=== PATIENT | male | born 1985 | race African-American/Black ===

== ENCOUNTER 2021-01-26 08:19 | Inpatient (IN) | payer BC, OTHER ==
[~2021-01-26] VITALS: Ht 167.6 cm; Wt 132.9 kg
[2021-01-26] VITALS (13 sets, daily range): BP systolic 139–190; BP diastolic 73–124
[2021-01-26 08:52] LABS: ABSOLUTE NEUTROPHILS 3.3 thou/uL (1.4-8.2); BASOPHILS 0.7 % (0.0-2.0); EOSINOPHILS 1.4 % (0.0-3.0); HEMATOCRIT 44.6 % (42.0-52.0); HEMOGLOBIN 14.6 gm/dL (14.0-18.0); LYMPHOCYTES 22.8 % (24.0-44.0); MCHC 32.8 g/dL (28.0-37.0); MONOCYTES 13.1 % (1.0-8.0); PLATELET COUNT 201 thou/uL (150-400); RBC 6.11 mil/uL (4.50-6.00); RDW 14.4 % (10.5-14.5); WBC 5.4 thou/uL (4.0-11.0)
[2021-01-26 09:18] LABS: CALCIUM 8.9 mg/dL (8.5-10.1); CREATININE 1.3 mg/dL (0.7-1.3); POTASSIUM 4.4 mmol/L (3.5-5.1)
[2021-01-26 09:22] LABS: URINE BLOOD TRACE (Negative); URINE CLARITY CLEAR; URINE COLOR YELLOW; URINE GLUCOSE-RANDOM* 3+ (Negative); URINE KETONES 3+ (Negative); URINE LEUKOCYTES-REFLEX NEGATIVE (Negative); URINE NITRITE-REFLEX NEGATIVE (Negative); URINE PROTEIN (DIPSTICK) NEGATIVE (Negative); URINE UROBILINOGEN 0.2 E.U./dl (0.2-1.0)
[2021-01-26 09:24] LABS: ALBUMIN 3.8 g/dL (3.4-5.0); TOTAL BILIRUBIN 0.7 mg/dL (0.2-1.0); TOTAL PROTEIN 7.6 g/dL (6.4-8.2)
[2021-01-26 09:44] LABS: ICTOTEST (BILI CONFIRMATORY) Negative (Negative); URINE BILIRUBIN NEGATIVE (Negative)
[2021-01-26 09:52] LABS: BE(vivo) -8.6 mmol/L (-2 to +3); HCO3 16.2 mmol/L (22.0-26.0); PCO2 VENOUS 32.1 mmHg (41.0-51.0); PO2 VENOUS 53.3 mmHg (35.0-45.0)
[2021-01-26 12:21] LABS: MAGNESIUM 2.1 mg/dL (1.8-2.4); PHOSPHORUS 3.6 mg/dL (2.5-4.9)
--- NOTE | 2021-01-26 14:15 | NUR ---
PATIENT ADMITTED TO ICU FOR DKA, INSULIN GTT INFUSING AT 4 UNITS/HR. INITIAL BLOOD SUGAR 260. WAITING FOR REPEAT LABS. PLACED ON MONITOR. SINUS TACH. HTN, PATIENT VOICES HX OF HTN BUT DOES NOT TAKE ANY CURRENT MEDICATIONS. HAD LOOSE BM UPON ARRIVAL. ADMISSION ASSESSMENTS COMPLETE. EDUCATED ON USE OF CALL LIGHT. PROVIDED VISITOR RULES AND ORIENTED TO ROOM. PATIENT DENIES ANY PAIN OR DISCOMFORT AT THIS TIME.
[2021-01-26 15:18] LABS: CALCIUM 8.9 mg/dL (8.5-10.1); CREATININE 1.3 mg/dL (0.7-1.3); POTASSIUM 3.7 mmol/L (3.5-5.1)
[2021-01-26 15:24] LABS: ALBUMIN 3.7 g/dL (3.4-5.0); TOTAL BILIRUBIN 0.5 mg/dL (0.2-1.0); TOTAL PROTEIN 7.3 g/dL (6.4-8.2)
[2021-01-26 20:38] LABS: ALBUMIN 3.5 g/dL (3.4-5.0); CALCIUM 8.7 mg/dL (8.5-10.1); CREATININE 1.1 mg/dL (0.7-1.3); MAGNESIUM 2.1 mg/dL (1.8-2.4); POTASSIUM 3.6 mmol/L (3.5-5.1); TOTAL BILIRUBIN 0.4 mg/dL (0.2-1.0)
[2021-01-26 21:32] LABS: AMP/METHAMP Negative (Negative); BARBITURATES Negative (Negative); BENZODIAZEPINES Negative (Negative); COCAINE Negative (Negative); METHADONE Negative (Negative); OPIATES Negative (Negative); PCP Negative (Negative)
[2021-01-27] VITALS (13 sets, daily range): BP systolic 122–170; BP diastolic 68–130
[2021-01-27 05:14] LABS: ANION GAP 12 mmol/L (7-16); BUN 12 mg/dL (7-18); CALCIUM 8.3 mg/dL (8.5-10.1); CHLORIDE 105 mmol/L (98-107); CHOLESTEROL 243 mg/dL (<200); CO2 22 mmol/L (21-32); GLUCOSE 161 mg/dL (74-106); HDL CHOLESTEROL 31 mg/dL (>40); LDL CHOLESTEROL 178 mg/dL (<100); PHOSPHORUS 3.4 mg/dL (2.5-4.9); POTASSIUM 3.5 mmol/L (3.5-5.1); SODIUM 139 mmol/L (136-145); TC:HDL 7.8 Ratio (Not establshd); TRIGLYCERIDE 174 mg/dL (<150); VLDL 35 mg/dL (<40)
[2021-01-27 05:37] LABS: SERUM ASSESSMENT Clear
--- NOTE | 2021-01-27 15:07 | NUR ---
ORDERS FOR EVAL AND TREAT. SPOKE WITH Pt WHO STATES HE FEELS BACK TO NORMAL. STATES HE DID FINE WITH O.T. EVAL AND HE DIDN'T HAVE ANY ISSUES WITH BALANCE OR MOBILITY. Pt DECLINING A FORMAL P.T. EVAL BUT WAS INDEPENDENT/SBA FOR O.T. EVAL AND APPEARS SAFE FOR HOME WHEN MEDICALLY CLEAR.
--- NOTE | 2021-01-27 15:31 | NUR ---
ASSUMED CARE 0700. PT TOOK ALL AM MEDS & INSULIN p LENGTHY D/W PT RE:WHY MEDICATION NEEDED, EFFECTS & GOALS. PT NEEDING MUCH EDUCATION & REINFORCEMENT OF DISCUSSION. D/W EARLIER. PT UP AD LENARD IN ROOM, WAITING ON BED TO TRANSFER OUT OF ICU. HAVING DIARRHEA BUT PT STILL WANTED MIRALAX & LACTULOSE THIS AM.WILL HOLD JAE DOSES DIARRHEA CONTINUES.--VW
--- NOTE | 2021-01-27 16:43 | NUR ---
ASSESSMENT: CM REVIEWED CHART AND SPOKE WITH PATIENT. PT APPEARS TO BE ALERT AND ORIENTED X4. PT WAS ADMITTED TO THE ICU DUE TO DKA AND REPORTS CONSTIPATION. PT REPORTS THAT HE CURRENTLY IS LIVING IN A HOUSE WITH HIS AUNT DEANDRA. PT REPORTS HE HAS ONE STEP TO ENTER AND NO STEPS HE USES INSIDE. PT REPORTS BEING FULLY INDEPENDENT WITH ADLS AND AMBULATION. PT REPORTS HE HAS NO HX OF HH OR SNF. CM ASKED PATIENT IF HE HAS A PCP AND PT REPORTS HE THOUGHT HE SAW A DOCTOR HERE AT THE HOSPITAL BUT UNSURE WHO. CM ENCOURAGED PATIENT TO CONTACT THE NUMBER ON THE BACK OF HIS INSURANCE CARD TO FIND A PROVIDER WHO IS IN NETWORK WITH HIS INSURANCE AND IF NEED NEEDS A LIST OF PCP HERE CM CAN PROVIDE HIM WITH ONE. CM WILL CONTINUE TO FOLLOW TO ASSIST NEEDED.
--- NOTE | 2021-01-27 20:49 | NUR ---
WATCHING TV.N/C VOICED.--VW
--- NOTE | 2021-01-28 00:30 | NUR ---
Nurse assumed care of patient from previous nurse. Patient was checked on and is resting quietly and comfortable. No cardiac monitoring, per physician order. Will continue to monitor patient status and needs throughout the night.
[2021-01-28 01:06] LABS: GLYCOHEMOGLOBIN (HGB A1C) 14.9 % (4.8-5.6)
[2021-01-28 05:49] VITALS: BP 155/82
[2021-01-28 07:56] LABS: EOSINOPHILS 2.6 % (0.0-3.0); HEMOGLOBIN 13.5 gm/dL (14.0-18.0); WBC 4.2 thou/uL (4.0-11.0)
[2021-01-28 07:58] LABS: ABSOLUTE NEUTROPHILS 2.3 thou/uL (1.4-8.2); BASOPHILS 1.2 % (0.0-2.0); HEMATOCRIT 41.4 % (42.0-52.0); LYMPHOCYTES 23.4 % (24.0-44.0); MCHC 32.7 g/dL (28.0-37.0); MCV 73.3 fL (80.0-100.0); MONOCYTES 17.6 % (1.0-8.0); PLATELET COUNT 174 thou/uL (150-400); POLYS 55.2 % (36.0-66.0); RBC 5.64 mil/uL (4.50-6.00); RDW 14.8 % (10.5-14.5)
[2021-01-28 08:00] VITALS: BP 146/76
[2021-01-28 08:15] LABS: ALBUMIN 3.2 g/dL (3.4-5.0); CALCIUM 8.8 mg/dL (8.5-10.1); CREATININE 1.2 mg/dL (0.7-1.3); POTASSIUM 3.7 mmol/L (3.5-5.1); TOTAL BILIRUBIN 0.5 mg/dL (0.2-1.0); TOTAL PROTEIN 6.4 g/dL (6.4-8.2)
[2021-01-28] MEDS ORDERED: TRADJENTA5 MG PO (10:54)
[2021-01-28] MEDS ORDERED: METFORMIN HCL500 MG PO (10:54)
[2021-01-28] MEDS ORDERED: LANTUS SOL100 UNIT/1 SUBQ (10:55)
[2021-01-28] MEDS ORDERED: TEST STRIPS1 EACH SUBQ (10:56)
[2021-01-28] MEDS ORDERED: FREESTYLE LANC1 EACH MISCELL (10:57)
[2021-01-28] MEDS ORDERED: ZESTRIL10 MG PO (10:58)
[2021-01-28 12:24] VITALS: BP 146/76
[2021-01-28 13:09] VITALS: BP 146/76
--- NOTE | 2021-01-28 20:32 | NUR ---
1330 PATIENT DISCHARGED TO HOME VIA W/C ACCOMPANIED BY THIS NURSE. PATIENT INSTRUCTED ON HOW TO GIVE HIMSELF AN INSULIN INJECTION WITH THE AM DOSE AND THEN EDUCATION REINFORCED WITH PATIENT GIVING HIMSELF HIS NOON SLIDING SCALE INSULIN. DISCHARGE INSTRUCTIONS REVIEWED WITH THE PATIENT AND VERBALIZED UNDERSTANDING. QUESTIONS ADDRESSED AND ANSWERED AND REASSURANCE GIVEN.
[2021-01-29] MEDS ORDERED: BASAGLAR K100 UNIT/1 SUBQ (19:48)
== END 2021-01-28 12:50 | disposition home or self-care (01) | DRG 638 ==
LOC: ER 08:19 → ICU 10:55 → EROBS 10:55 → ICU 13:56
PROVIDERS: Emergency Medicine; Nurse Practitioner; ADMIT Hospitalist; ATTEND Hospitalist
DX: E11.10 Type 2 diabetes mellitus with ketoacidosis without coma (principal); Z68.42 Body mass index [BMI] 45.0-49.9, adult; I10 Essential (primary) hypertension; E11.9 Type 2 diabetes mellitus without complications; K59.00 Constipation, unspecified; E66.9 Obesity, unspecified; Z79.899 Other long term (current) drug therapy
CPT/HCPCS: 10078; 10204